=== PATIENT | male | born 1965 | race Caucasian/White ===

== ENCOUNTER 2018-12-01 21:57 | Inpatient (IN) | payer OTHER ==
[~2018-12-01] VITALS: Ht 172.7 cm; Wt 134.8 kg
[2018-12-01 22:01] VITALS: Ht 172.7 cm; Wt 134.8 kg
[2018-12-01 23:26] LABS: CALCIUM 8.4 mg/dL (8.5-10.1); CARBON DIOXIDE 29.9 mmol/L (21-32); CHLORIDE SERUM 102 mmol/L (98-107); CREATININE SERUM 1.2 mg/dL (0.7-1.3); GFR1 > 60 mL/min; GLUCOSE SERUM 191 mg/dL (74-106); POTASSIUM SERUM 3.4 mmol/L (3.5-5.1); SODIUM SERUM 138 mmol/L (136-145)
[2018-12-01 23:33] LABS: ALKALINE PHOSPHATASE 81 U/L (46-116); ALT/SGPT 40 U/L (16-63); AST/SGOT 21 U/L (15-37); BILIRUBIN TOTAL 0.6 mg/dL (0.20-1.00)
[2018-12-01 23:35] LABS: ALBUMIN 2.3 g/dL (3.4-5.0)
[2018-12-01 23:39] LABS: BASOPHIL % 0.3 % (0-2); PLATELET COUNT 245 x10^3mcL (130-400)
[2018-12-02] MEDS ORDERED: BASAGLAR K100 UNIT/1 SQ (01:17)
[2018-12-02] MEDS ORDERED: LOTENSIN40 MG PO (01:18)
[2018-12-02] MEDS ORDERED: NEU300 PO (01:18)
[2018-12-02] MEDS ORDERED: METFORMIN HYD1000 M2 PO (01:18)
[2018-12-02] MEDS ORDERED: RANITIDINE HCL150 M1 PO (01:19)
[2018-12-02] MEDS ORDERED: FUROSEMIDE20 MG PO (01:19)
[2018-12-02] MEDS ORDERED: GOOD SENSE ASPI81 M3 PO (01:19)
[2018-12-02] MEDS ORDERED: REQUIP0.5 MG PO (01:20)
[2018-12-02] MEDS ORDERED: PAROXETINE HCL20 M1 PO (01:20)
[2018-12-02] MEDS ORDERED: POTASSIUM CHLO10 MEQ PO (01:21)
[2018-12-02] MEDS ORDERED: CARVEDILOL3.125 M1 PO (01:21)
[2018-12-02] MEDS ORDERED: MELOXICAM15 M1 PO (01:21)
[2018-12-02] MEDS ORDERED: NEURONTIN600 MG PO (01:22)
[2018-12-02 02:59] LABS: CHOLESTEROL/HDL RATIO 2.5; MAGNESIUM 1.3 mg/dL (1.8-2.4); PHOSPHOROUS 2.8 mg/dL (2.5-4.9)
[2018-12-02 03:15] LABS: microscopic required? YES; urine erythrocyte 1+ (NEGATIVE)
[2018-12-02 04:04] VITALS: BP 136/77
[2018-12-02 07:01] VITALS: BP 136/77
[2018-12-02 09:03] VITALS: BP 155/91
[2018-12-02 11:00] VITALS: BP 141/91
[2018-12-02 18:08] VITALS: BP 123/79
[2018-12-02 19:56] VITALS: BP 156/105
[2018-12-03 05:00] VITALS: BP 94/57
[2018-12-03 06:30] LABS: BASOPHIL % 0.2 % (0-2); PLATELET COUNT 249 x10^3mcL (130-400); RED CELL DISTRIBUTION WIDTH 14.1 % (11.5-14.5)
[2018-12-03 07:04] LABS: CALCIUM 8.3 mg/dL (8.5-10.1); CARBON DIOXIDE 29.2 mmol/L (21-32); CREATININE SERUM 1.4 mg/dL (0.7-1.3); MAGNESIUM 1.9 mg/dL (1.8-2.4); PHOSPHOROUS 4.2 mg/dL (2.5-4.9); POTASSIUM SERUM 3.7 mmol/L (3.5-5.1)
[2018-12-03 09:28] VITALS: BP 117/74
[2018-12-03 14:05] VITALS: BP 111/67
[2018-12-03 17:20] VITALS: BP 123/87
[2018-12-03 20:22] VITALS: BP 134/76
[2018-12-04 04:44] VITALS: BP 115/80
[2018-12-04 07:04] LABS: BASOPHIL % 0.3 % (0-2); CARBON DIOXIDE 33.8 mmol/L (21-32); CREATININE SERUM 1.5 mg/dL (0.7-1.3); PLATELET COUNT 300 x10^3mcL (130-400); POTASSIUM SERUM 4.2 mmol/L (3.5-5.1); RED CELL DISTRIBUTION WIDTH 14.5 % (11.5-14.5)
[2018-12-04 09:46] VITALS: BP 132/96
[2018-12-04 14:31] VITALS: BP 136/90
[2018-12-04 18:32] VITALS: BP 150/98
[2018-12-04 20:50] VITALS: BP 151/97
[2018-12-05 05:07] VITALS: BP 127/55
[2018-12-05 07:42] LABS: CALCIUM 8.5 mg/dL (8.5-10.1); CARBON DIOXIDE 28.9 mmol/L (21-32); CHLORIDE SERUM 102 mmol/L (98-107); CREATININE SERUM 1.2 mg/dL (0.7-1.3); GFR1 > 60 mL/min; GLUCOSE SERUM 180 mg/dL (74-106); POTASSIUM SERUM 4.3 mmol/L (3.5-5.1); SODIUM SERUM 138 mmol/L (136-145)
[2018-12-05 08:09] LABS: BASOPHIL % 0.3 % (0-2); PLATELET COUNT 259 x10^3mcL (130-400); RED CELL DISTRIBUTION WIDTH 14.2 % (11.5-14.5)
[2018-12-05 09:00] VITALS: BP 130/65
[2018-12-05 09:58] VITALS: BP 130/65
[2018-12-05 12:29] VITALS: BP 123/87
[2018-12-05 16:38] VITALS: BP 101/64
[2018-12-05 20:42] VITALS: BP 122/75
[2018-12-06 05:11] VITALS: BP 124/79
[2018-12-06 06:57] LABS: BASOPHIL % 0.4 % (0-2); PLATELET COUNT 256 x10^3mcL (130-400); RED CELL DISTRIBUTION WIDTH 14.2 % (11.5-14.5)
[2018-12-06 08:06] LABS: CALCIUM 8.4 mg/dL (8.5-10.1); CHLORIDE SERUM 103 mmol/L (98-107); GFR1 > 60 mL/min; GLUCOSE SERUM 155 mg/dL (74-106); POTASSIUM SERUM 4.1 mmol/L (3.5-5.1); SODIUM SERUM 140 mmol/L (136-145)
[2018-12-06 09:22] VITALS: BP 98/69
[2018-12-06 12:46] VITALS: BP 123/84
[2018-12-06 16:50] VITALS: BP 107/78
[2018-12-06 21:24] VITALS: BP 132/74
[2018-12-07 05:25] VITALS: BP 107/61
[2018-12-07 07:05] LABS: PLATELET COUNT 287 x10^3mcL (130-400); RED CELL DISTRIBUTION WIDTH 14.1 % (11.5-14.5)
[2018-12-07 07:23] LABS: CALCIUM 8.6 mg/dL (8.5-10.1); CARBON DIOXIDE 33.2 mmol/L (21-32); CHLORIDE SERUM 103 mmol/L (98-107); CREATININE SERUM 1.2 mg/dL (0.7-1.3); GFR1 > 60 mL/min; GLUCOSE SERUM 123 mg/dL (74-106); POTASSIUM SERUM 4.4 mmol/L (3.5-5.1); SODIUM SERUM 141 mmol/L (136-145)
[2018-12-07 08:38] VITALS: BP 120/79
[2018-12-07 12:55] VITALS: BP 131/86
[2018-12-07 18:00] VITALS: BP 154/97
[2018-12-07 20:37] VITALS: BP 129/88
[2018-12-08 03:43] VITALS: BP 140/91
[2018-12-08 06:24] LABS: BASOPHIL % 1.7 % (0-2); PLATELET COUNT 316 x10^3mcL (130-400); RED CELL DISTRIBUTION WIDTH 13.8 % (11.5-14.5)
[2018-12-08 06:36] LABS: CALCIUM 8.9 mg/dL (8.5-10.1); CARBON DIOXIDE 31.7 mmol/L (21-32); CHLORIDE SERUM 100 mmol/L (98-107); CREATININE SERUM 1.1 mg/dL (0.7-1.3); GFR1 > 60 mL/min; GLUCOSE SERUM 225 mg/dL (74-106); POTASSIUM SERUM 4.6 mmol/L (3.5-5.1); SODIUM SERUM 139 mmol/L (136-145)
[2018-12-08 09:06] VITALS: BP 142/91
[2018-12-08 12:00] VITALS: BP 122/79
[2018-12-08 17:17] VITALS: BP 128/77
[2018-12-08 20:57] VITALS: BP 113/80
[2018-12-09 04:43] VITALS: BP 135/75
[2018-12-09 06:41] LABS: BASOPHIL % 0.3 % (0-2); PLATELET COUNT 354 x10^3mcL (130-400); RED CELL DISTRIBUTION WIDTH 13.6 % (11.5-14.5)
[2018-12-09 06:59] LABS: CALCIUM 9.2 mg/dL (8.5-10.1); CARBON DIOXIDE 33.8 mmol/L (21-32); CHLORIDE SERUM 99 mmol/L (98-107); CREATININE SERUM 1.2 mg/dL (0.7-1.3); GFR1 > 60 mL/min; GLUCOSE SERUM 254 mg/dL (74-106); POTASSIUM SERUM 4.6 mmol/L (3.5-5.1); SODIUM SERUM 139 mmol/L (136-145)
[2018-12-09 09:20] VITALS: BP 134/94
[2018-12-09 12:51] VITALS: BP 138/87
[2018-12-09 16:22] VITALS: BP 132/85
[2018-12-09 22:23] VITALS: BP 134/88
[2018-12-10 05:57] VITALS: BP 115/73
[2018-12-10 07:38] LABS: BASOPHIL % 0.8 % (0-2); PLATELET COUNT 341 x10^3mcL (130-400)
[2018-12-10 08:20] LABS: CALCIUM 9.3 mg/dL (8.5-10.1); CARBON DIOXIDE 30.5 mmol/L (21-32); CHLORIDE SERUM 101 mmol/L (98-107); CREATININE SERUM 1.1 mg/dL (0.7-1.3); GFR1 > 60 mL/min; GLUCOSE SERUM 186 mg/dL (74-106); POTASSIUM SERUM 4.1 mmol/L (3.5-5.1); SODIUM SERUM 139 mmol/L (136-145)
[2018-12-10 08:37] VITALS: BP 143/92
[2018-12-10] MEDS ORDERED: MEDDP PO (12:16)
[2018-12-10] MEDS ORDERED: LASIX40 MG PO (12:33)
[2018-12-10 13:44] VITALS: BP 143/92
== END 2018-12-10 18:00 | disposition home or self-care (01) | DRG 194 ==
LOC: ED 21:57 → DU 12-02 01:29 → MU 12-09 16:26
PROVIDERS: Emergency Medicine; Family Medicine; ADMIT Internal Medicine
DX: I11.0 Hypertensive heart disease with heart failure (principal); J96.01 Acute respiratory failure with hypoxia; E43 Unspecified severe protein-calorie malnutrition; N17.9 Acute kidney failure, unspecified; J45.901 Unspecified asthma with (acute) exacerbation; E11.65 Type 2 diabetes mellitus with hyperglycemia; E66.01 Morbid (severe) obesity due to excess calories; I50.23 Acute on chronic systolic (congestive) heart failure; E83.42 Hypomagnesemia; Z68.41 Body mass index [BMI] 40.0-44.9, adult; I43 Cardiomyopathy in diseases classified elsewhere; E87.6 Hypokalemia; G47.33 Obstructive sleep apnea (adult) (pediatric); E78.5 Hyperlipidemia, unspecified; Z79.4 Long term (current) use of insulin; Z79.82 Long term (current) use of aspirin; Z79.84 Long term (current) use of oral hypoglycemic drugs
CPT/HCPCS: 82962; 83880; 94150; J1644; J1815; J1940; J2405; J2920; J2930; J3475; J7040; J7620; J7626; Q0092; Q0177

== ENCOUNTER 2019-02-06 22:14 | Inpatient (IN) | payer OTHER ==
[~2019-02-06] VITALS: Ht 172.7 cm; Wt 66.4 kg
[~2019-02-06 22:14] MED LIST: BASAGLAR K100 UNIT/1 SQ; CARVEDILOL3.125 M1 PO; FUROSEMIDE20 MG PO; GOOD SENSE ASPI81 M3 PO; LASIX40 MG PO; LOTENSIN40 MG PO; MEDDP PO; MELOXICAM15 M1 PO; METFORMIN HYD1000 M2 PO; NEU300 PO; NEURONTIN600 MG PO; PAROXETINE HCL20 M1 PO; POTASSIUM CHLO10 MEQ PO; RANITIDINE HCL150 M1 PO; REQUIP0.5 MG PO
--- NOTE | 2019-02-06 22:20 | NUR ---
PT BIB AUNT FOR C/O SOB X 3 DAYS. PT STATES THAT HE HAS JUST BEEN FEELING SO SOB HE FEELS RESTLESS AND CAN NOT LAY DOWN BECAUSE HE CAN NOT BREATHE. PT HAS CRACKLES IN BL BASES OF LUNGS WELL IS LABORED AND DIAPHORETIC. PT SPEAKING IN SHORT 2 -3 WORD SENTENCES. PT DENIES ANY PAIN AT THIS TIME. PT HAS BLLE PITTING EDEMA. SING AT BEDSIDE FOR MSE. PT PUT ON 2L NC TO SEE IF THAT INCREASES HIS O2 SATURATION HWOERIMMA ISAACS SING WANTS STAT ABG. AUNT AT BEDSIDE.
--- NOTE | 2019-02-06 22:41 | NUR ---
RT AT BEDSIDE FOR ABG
[2019-02-06 23:07] LABS: BASOPHIL % 0.5 % (0-2); PLATELET COUNT 234 x10^3mcL (130-400); RED CELL DISTRIBUTION WIDTH 14.1 % (11.5-14.5)
[2019-02-06 23:14] LABS: BILIRUBIN TOTAL 0.32 mg/dL (0.20-1.00); CALCIUM 8.1 mg/dL (8.5-10.1); CARBON DIOXIDE 29.5 mmol/L (21-32); CREATININE SERUM 1.7 mg/dL (0.7-1.3); POTASSIUM SERUM 4.9 mmol/L (3.5-5.1)
[2019-02-06 23:24] LABS: ALBUMIN 2.5 g/dL (3.4-5.0); TOTAL PROTEIN, SERUM 5.8 g/dL (6.4-8.2)
--- NOTE | 2019-02-06 23:41 | NUR ---
PT STATES HE DOES NOT FEEL ANY RELIEF AND FEELS LIKE HE IS GETTING TIRED AND HAS A H/A PER MD SING WE WILL PUT PT ON BIPAP. PT MADE AWARE PT ALSO MADE AWARE HE WILL BE STAYING IN HOSPITAL RT CALLED TO PLACE PT ON BIPAP THEY STATE THEY WILL BE RIGHT DOWN
[2019-02-07] VITALS (7 sets, daily range): BP systolic 106–160; BP diastolic 49–989; Ht 172.7 cm; Wt 66.4 kg
--- NOTE | 2019-02-07 00:07 | NUR ---
RT AT BEDSIDE FOR BIPAP PLACEMENT
--- NOTE | 2019-02-07 00:33 | NUR ---
SPOKE WITH ADMITTING FOR CLINICAL INFORMATION TO ADMIT PT
[2019-02-07] MEDS ORDERED: ATRNS6 (00:36)
[2019-02-07] MEDS ORDERED: LACOO OU (00:37)
[2019-02-07] MEDS ORDERED: ADMELOG100 UNIT/1 SQ (00:37)
--- NOTE | 2019-02-07 00:40 | NUR ---
ASSESSMENT COMPLETED BY JUSTIN LEWIS RN
--- NOTE | 2019-02-07 00:50 | NUR ---
REPORT CALLED TO MIQUEL GILBERT TO RESUME CARE OF PT
--- NOTE | 2019-02-07 01:00 | NUR ---
BED SIDE HANDS OFF RECEIVED FROM RESOURCE RN JUAN- PATIENT NOTED TO HAVE SOB ON EXERTION AND ACTIVITY. WAS ON 4LNC SAT 98%, WILL BE PLACED ON BIPAP SOON AT SETTING 12/6, 16, FIO2 40%. PATIENT ABLE TO ANSWER QUESTIONS. PATIENT ACQUIANTED TO BEDSIDE EQUIPMENTS AND UNIT POLICIES. SAFETY PRECAUTIONS INITIATED. WILL CONTINUE TO MONITOR.
--- NOTE | 2019-02-07 01:00 | NUR ---
[facility], CAME IN DUE TO BLE SWELLING AND SOB. AAOX4. C/O MILD HEADACHE. DENIES DIZZINESS. ABLE TO FOLLOW COMMANDS. NO SOB NOTED, LUNG SOUNDS CTA. O2 SAT=94% ON 4LPM/NC. DENIES CHEST PAIN/PRESSURE. SR ON THE MONITOR. DENIES ABDOMINAL DISCOMFORT. BOWEL SOUNDS ACTIVE. VOIDS. W/ +3 EDEMA ON THE RLE AND +1 EDEMA ON LLE. WEAK PEDAL PULSES. IV SITE PATENT AND INTACT. SIDE RAILS UPX2. CALL LIGHT ON REACH. PRIMARY NURSE MIQUEL AT BEDSIDE FOR CONTINUITY OF CARE
[2019-02-07 02:01] LABS: UA SPECIFIC GRAVITY 1.015 (1.005-1.035); microscopic required? YES; urine erythrocyte TRACE (NEGATIVE)
[2019-02-07 02:19] LABS: AMPHETAMINE QUAL UR NONE DETECTED (See below)
--- NOTE | 2019-02-07 03:05 | NUR ---
patient had short run of v-tach, 11 pvc's in a row 0.4sec. patient checked was sleepingg, easily awaken, denied chest pains or discomforts, checked bp was 107/53,map=67, rr=20bpm, on bipap sat 96%/ will notify md.
--- NOTE | 2019-02-07 03:35 | NUR ---
dr hester responded back, able to see correctional manager strip.
--- NOTE | 2019-02-07 06:13 | NUR ---
PATIENT SINCE ARRIVAL TO THE FLOOR NO NOTED RESP. DISTRESS, TOLERATING BIPAP AT SAME SETTING 12/6, 16 FIO2 40%, SAT BETWEEEN 93-96%. AMBULATORY WITH STEADY GAIT MILD SOB ON EXERTION.SAFETY PRECAUTIONS MAINTAINED.WILL ENDORSE CONTINUITY OF CARE TO INCOMING NURSE.
[2019-02-07 06:27] LABS: BASOPHIL % 0.3 % (0-2); PLATELET COUNT 230 x10^3mcL (130-400); RED CELL DISTRIBUTION WIDTH 14.4 % (11.5-14.5)
[2019-02-07 06:55] LABS: CALCIUM 8.2 mg/dL (8.5-10.1); CARBON DIOXIDE 35.9 mmol/L (21-32); CREATININE SERUM 1.6 mg/dL (0.7-1.3); PHOSPHOROUS 4.6 mg/dL (2.5-4.9); POTASSIUM SERUM 5.1 mmol/L (3.5-5.1)
--- NOTE | 2019-02-07 07:36 | NUR ---
BEDSIDE HANDS OFF AND INTRODUCTION PERFORMED WITH INCOMING NURSE ELADIO-RN.
--- NOTE | 2019-02-07 07:51 | NUR ---
RECEIVED PATIENT FROM OFELIA LAFLEUR. PATIENT SEATED AT BEDSIDE USING BIPAP. NO COMPLAINTS AT THIS TIME. SPOKE WITH PATIENT ABOUT TODAYS PLAN OF CARE, PATIENT AGREES. STATES HE NEEDS HIS COFFEE FOR THIS AM. WILL CONTINUE TO MONITOR AND ADMINISTER MEDICATIONS THIS AM. CALL LIGHT IN REACH.
--- NOTE | 2019-02-07 12:17 | NUR ---
PT HOLDING BIPAP MASK AT TIME OF ENTERING THE ROOM. PT TAKES ON AND OFF BIPAP HIS SELF. PT NOTIFIED TO USE NASAL CANNULA WHICH WAS REPLACED AT THIS TIME. PT STATED THAT IT FELL ON THE FLOOR. NEW NASAL CANNULA IS AT BEDSIDE RUNNING AT 4L/M. WILL CONTINUE TO MONITOR.
--- NOTE | 2019-02-07 12:58 | NUR ---
PATIENT BS ELEVATED TO 535, 537 ON SECOND CHECK. PAGED DR CASTILLO SAYED, 21 U OF REGULAR INSULIN GIVEN. IVP SOLUMEDROL 40 MG HELD AT THIS TIME UNTIL RESPONSE FROM DR. PATIENT DENIES FATIGUE, NO S/S OF ALOC OR DIAPHORESIS. PATIENT SEATED AT BEDSIDE, EATING LUNCH TRAY. CALL LIGHT IN REACH.
--- NOTE | 2019-02-07 13:07 | NUR ---
SPOKE WITH DR CASTILLO SAYED ABOUT PATIENT BS. STATES TO RECHECK TO BLOOD SUGAR IN AN HOUR, AND TO HOLD IV SOLUMEDROL, AND TO LET HIM KNOW. WILL RECHECK IN ONE HOUR.
--- NOTE | 2019-02-07 14:47 | NUR ---
PATIENT BLOOD SUGAR RECHECKED AND STILL ELEVATED TO "HI". NOTIFIED CHARGE NURSE MEÑO, AND DR CASTILLO SAYED. NEW ORDERS PLACED FOR STAT ABG, UA, AND SERUM GLUCOSE. WILL CONTINUE TO MONITOR, UA COLLECTED, SERUM GLUCOSE DRAWN, AND ABG DRAW IN PROGRESS. PATIENT SEATED AT BEDSIDE, DENIES DIZZINESS, SKIN IS WARM AND DRY.
[2019-02-07 14:51] LABS: UA SPECIFIC GRAVITY 1.015 (1.005-1.035); microscopic required? YES; urine erythrocyte 1+ (NEGATIVE)
[2019-02-07 15:09] LABS: CALCIUM 8.4 mg/dL (8.5-10.1); CARBON DIOXIDE 32.9 mmol/L (21-32); CREATININE SERUM 1.6 mg/dL (0.7-1.3)
[2019-02-07 15:19] LABS: POTASSIUM SERUM 6.2 mmol/L (3.5-5.1)
--- NOTE | 2019-02-07 16:35 | NUR ---
PT ARRIVED TO UNIT @ 1625 VIA ON 4L O2 AND BULK FILLER VIA BED ACCOMPANIED BY KAROLINA GILBERT AND MYSELF. ICU BED 3. VS = TEMP: 97.6, BP: 144/85 (100), HR: 87, RR: 18, O2: 99%. AAOX4. ABLE TO FOLLOW COMMANDS. PUPILS 4MM IN SIZE AND BRISK B/E. NO FACIAL DROOP NOTED. SPEECH IS CLEAR AND APPROPRIATE. DENIES HEADACHE. EENT FREE OF DISCHARGE. TRACHEA MIDLINE. NO JVD PRESENT. PT IS OBESE. PT PUT BACK ON BIPAP BY LAUREN GILBERT, SETTINGS OF: 06/09, RR: 16, FIO2: 40%. BREATHING EVEN AND UNLBAORED. SYMMETRICAL CHEST WALL EXPANSION NOTED. DIMINISHED LUNG SOUNDS AUSCULTATED. NO S/S OF RESP DISTRESS NOTED. DENIES SOB. NSR ON BULK FILLER. MOD PALPABLE PULSES X4. CAP REFILL <3 SEC. +3 EDEMA NOTED TO BLE. SKIN IS WARM/DRY TO TOUCH, MORRISON/BROWN IN COLOR AND CONSISTENT WITH ETHNICITY. PIV TO R FA INTACT, PORT PATENT, DRESSING CDI. ABD IS ROUNDED AND NONTENDER. ACTIVE BOWEL SOUNDS X4. NO BM AT THIS TIME. DENIES N/V. PT VOIDS FREELY VIA URINAL, VOIDED 350CC OF YELLOW URINE AT BEDSIDE. HAS PIERCING TO R NIPPLE NOTED, OTHERWISE SKIN INTACT. WILL RESUME CARE OF PT.
--- NOTE | 2019-02-07 16:56 | NUR ---
INSULIN GTT INITIATED AT THIS TIME @ 0.1 UNITS/KG/HR. NS INITIATED @ 50 ML/HR PER DR'S ORDERS DUE TO PT'S HX OF CHF.
[2019-02-07 16:57] LABS: CALCIUM 8.4 mg/dL (8.5-10.1); CARBON DIOXIDE 33.4 mmol/L (21-32); CREATININE SERUM 1.5 mg/dL (0.7-1.3); PHOSPHOROUS 4.3 mg/dL (2.5-4.9); POTASSIUM SERUM 5.5 mmol/L (3.5-5.1)
--- NOTE | 2019-02-07 19:35 | NUR ---
REC'D REPORT FROM KARIE GILBERT TO ASSUME CARE. PT IS A/O X4. SPEECH CLEAR AND APPRORPIATE. ABLE TO MAKE NEEDS KNOWN PERRLA NOTED. EENT FREE OF DISCHARGE. RESPS E/U. CHEST RISE EQUAL AND SYMMETRICAL. PT ON BIPAP RATE 16, IPAP 12, FIO2 40%. LUNG SOUNDS DIMINISHED NITHIN. PASSENGER VESSEL CHEF IN PLACE. BP 106/49 MAP 69, HR 87. DENIES ANY CP, SYNCOPE, OR DIZZINESS. CHEST WALL STABLE. PULSES PALPABLE X4. CAP REFILL < 3 SECS. BLE PITTING 2+ PITTING EDEMA, BUE TRACE EDEMA. RFA IV INTACT AND PATENT, NS INFUSING @ 50ML/HR. INSULIN GTT INFUSING @ 0.1 UNITS/KG/HR. PT KEPT NPO PER MD ORDER. ABD OBESE AND SOFT. BOWEL SOUNDS ACTIVE. DENIES ANY N/V/D. VOIDS FREELY WITH URINAL. DENIES ANY URINARY SYMPTOMS. SKIN INTACT. WARM DRY TO TOUCH. PT CALM AND COOPERATIVE. NO VISITORS AT THIS TIME. ABLE TO REPOSITION SELF INDEPENDENTLY. ALL NEEDS MET AT THIS TIME. CALL LIGHT WITHIN REACH. WILL CONTINUE TO MONITOR.
--- NOTE | 2019-02-07 20:15 | NUR ---
BS 168, INSULIN GTT DECREASED TO 0.05 UNITS/KG/HR. DR CUTLER MADE AWARE TO CHANGE IVF AND DIET.
[2019-02-07 20:45] LABS: CALCIUM 8.9 mg/dL (8.5-10.1); CARBON DIOXIDE 31.3 mmol/L (21-32); CREATININE SERUM 1.4 mg/dL (0.7-1.3); PHOSPHOROUS 4.4 mg/dL (2.5-4.9); POTASSIUM SERUM 4.7 mmol/L (3.5-5.1)
[2019-02-07 20:53] LABS: MAGNESIUM 2.1 mg/dL (1.8-2.4)
--- NOTE | 2019-02-07 21:08 | NUR ---
IVF CHANGED TO D5 1/2 NS @ 50ML/HR. PT STS FEELING HUNGRY. BIPAP TAKEN OFF, PT PLACED ON O2 4 LPM VIA NC O2 SAT 95%. PT PROVIDED SANDWICH AND PUDDING. TOLERATED WELL.
--- NOTE | 2019-02-07 22:20 | NUR ---
PTS BS 231, IVF TITRATED TO 40ML/HR.
--- NOTE | 2019-02-07 23:04 | NUR ---
PT SEEN SITTING UP IN BED AWAKE TALKING ON PHONE WITH HIS MOM. NO SOB NOTED,RESPS E/U ON O2 4LPM VIA NC.
--- NOTE | 2019-02-07 23:04 | NUR ---
PT ASSISTED TO BSC, PT HAD SMALL AMT OF SOFT STOOL. PT ASSISTED BACK TO BED SAFELY.
--- NOTE | 2019-02-08 00:15 | NUR ---
PT PLACED BACK ON BIPAP AT THIS TIME. SOUMYA RT MADE AWARE.
[2019-02-08 00:35] LABS: CALCIUM 8.8 mg/dL (8.5-10.1); CARBON DIOXIDE 31.7 mmol/L (21-32); CHLORIDE SERUM 99 mmol/L (98-107); CREATININE SERUM 1.2 mg/dL (0.7-1.3); GFR1 > 60 mL/min; GLUCOSE SERUM 207 mg/dL (74-106); MAGNESIUM 1.8 mg/dL (1.8-2.4); PHOSPHOROUS 4.2 mg/dL (2.5-4.9); POTASSIUM SERUM 4.6 mmol/L (3.5-5.1); SODIUM SERUM 136 mmol/L (136-145)
--- NOTE | 2019-02-08 01:09 | NUR ---
ANION GAP CLOSED X2. DR CUTLER MADE AWARE, AWAITING FOR FURTHER ORDERS.
--- NOTE | 2019-02-08 02:06 | NUR ---
PTS URINAL EMPTIED 500ML CLEAR YELLOW URINE.
[2019-02-08 03:17] VITALS: BP 109/52
--- NOTE | 2019-02-08 03:30 | NUR ---
INSULIN GTT TURNED OFF AT THIS TIME. LONG ACTING INSULIN GIVEN PER MD ORDER. IVF NS CHANGED TO 50ML/HR.
--- NOTE | 2019-02-08 03:32 | NUR ---
DR CUTLER MADE AWARE LONG ACTING INSULIN ONE TIME DOSE NEEDED AT THIS TIME TO TURN OFF INSULIN GTT PER DKA PROTOCOL. AWAITING FURTHER ORDERS.
[2019-02-08 04:57] LABS: BASOPHIL % 0.3 % (0-2); PLATELET COUNT 241 x10^3mcL (130-400)
[2019-02-08 04:59] LABS: CALCIUM 8.6 mg/dL (8.5-10.1); CARBON DIOXIDE 33.7 mmol/L (21-32); CHLORIDE SERUM 102 mmol/L (98-107); CREATININE SERUM 1.2 mg/dL (0.7-1.3); GFR1 > 60 mL/min; GLUCOSE SERUM 190 mg/dL (74-106); MAGNESIUM 1.8 mg/dL (1.8-2.4); PHOSPHOROUS 4.2 mg/dL (2.5-4.9); POTASSIUM SERUM 4.1 mmol/L (3.5-5.1); SODIUM SERUM 140 mmol/L (136-145)
--- NOTE | 2019-02-08 06:17 | NUR ---
DR BRYSON AT BEDSIDE, UPDATED ON STATUS, STS PT IS READY TO BE TRANSFERRED TO [facility].
[2019-02-08 07:30] VITALS: BP 120/67
--- NOTE | 2019-02-08 07:30 | NUR ---
PATIENT ORIENTED TO PERSON, PLACE AND TIME. PATIENT COMMUNICATES WITH CLEAR SPEECH AND MAKES NEEDS KNOWN. PERRLA BOTH EYES. TELE # 3 READS NORMAL SINUS RHYTHMS. IV SITE TO RFA HEPLOCK AT THIS TIME. SOME SWELLING NOTED AT THE SITE; ICE PACK APPLIED. WILL REMOVE THE HEPLOCK SOON PATIENT IS ON BIPAP AT THIS TIME 12/6, RATE 16, FIO2 40%. CALL LIGHT WITHIN REACH. SIDE RAILS UP X3.
--- NOTE | 2019-02-08 07:35 | NUR ---
BIPAP WAS SWITCHED TO NASAL CANNULA 4L/MIN SO THAT PATIENT WILL HAVE BREAKFAST. O2 SAT >94% AT THIS TIME.
--- NOTE | 2019-02-08 08:28 | NUR ---
DR. CRAWFORD IS AT BEDSIDE EXAMING THE PATIENT.
--- NOTE | 2019-02-08 08:30 | NUR ---
NEW IV SITE INSERTED TO RIGHT HAND WITH #22G. THE OLD IV SITE AT RFA REMOVED. MULTIPLE BLISTERS NOTED BENEATH THE TAPE AT THE SITE. THE TAPE REMOVED. THE PICTURE OF THE SKIN AREA TAKEN.
--- NOTE | 2019-02-08 08:35 | NUR ---
THE SKIN TEAR/BLISTERS AT RFA WAS CLEANSED WITH SKIN PREP; PATTED DRY BEFORE APPLYING VERSATEL.
--- NOTE | 2019-02-08 09:23 | NUR ---
PLACED PT ON HI FLOW THERAPY AT THIS TIME 10L 35%. FIO2 ABOVE 92%. KNIFE GRINDER NOTIFIED.
--- NOTE | 2019-02-08 09:57 | NUR ---
DR. RAIN AND THE TEAM ARE AT BEDSIDE SEEING THE PATIENT.
[2019-02-08 11:00] VITALS: BP 143/89
[2019-02-08 12:38] LABS: rbc morphology (normal/abnorm) NORMAL (NORMAL)
--- NOTE | 2019-02-08 14:30 | NUR ---
REPORT GIVEN TO JUAN ANTONIO THE NURSE FROM [facility] UNIT. CONCERNS ADDRESSED. PATIENT IS TRANSFERRED TO ROOM 255B [facility] UNIT IN STABLE CONDITION VIA WHEELCHAIR; PATIENT TRANSFERRED HIMSELF FROM BED TO WHEELCHAIR AND FROM WHEELCHAIR TO BED WITHOUT ASSISTANCE. ALL BELONGINGS SENT TO THE ROOM WITH THE PATIENT.
[2019-02-08 14:45] VITALS: BP 156/94
--- NOTE | 2019-02-08 14:53 | NUR ---
RECEIVED PATIENT FROM ICU NURSE. SETTLED IN ROOM, ORIENTED TO SURROUNDINGS. PATIENT IS ON TELE MONITOR # 14. DX OF RESPIRATORY FAILURE AND CHF. PATIENT IS AWAKE, ALERT AND ORIENTED X 4. MONITOR SHOWING SINUS RHYHTM; RATE 90'S. O2 SAT 97% ON BIPAP WITH FIO2 OF 35 %. PATIENT AMBULATED TO BATHROOM AND BACK TO BED. RT AT BEDSIDE. CALL LIGHT WITHIN REACH.
[2019-02-08 16:36] VITALS: BP 150/91
--- NOTE | 2019-02-08 17:19 | NUR ---
PATIENT REMAINS ON BIPAP. RESTING QUIETLY. BLOOD GLUCOSE 296. GIVEN REGULAR INSULIN 9 UNITS PER SLIDING SCALE.
--- NOTE | 2019-02-08 17:55 | NUR ---
PATIENT PLACED ON NC AT 4L/MIN , SO THAT HE CAN EAT DINNER. SITTING ON SIDE OF BED.
--- NOTE | 2019-02-08 18:26 | NUR ---
O2 SAT 96% ON 4L VIA NC. RR 25-30. SOB ON EXERTION. WILL ENDORSE CARE TO NIGHT NURSE.
--- NOTE | 2019-02-08 19:49 | NUR ---
SHIFT REASSESSMENT DONE.PATIENT ALERT AND ORIENTED.O2 AT 4 LITERS AT THIS TIME,PATIENT OBESE,BIPAP AT [facility],ALSO HAS HI FLOW SET UP,BUT REPORT SAYS HE DOES NOT LIKE IT,A TRANSFER FROM ICU TODAY.GEN WEAKNESS BUT AMBULATORY.FALL PRECAUTION.R HAND IV SITE 22 GUAGE INTACT.HAS OLD IV SITE RFA,BLISTERS,COVERED.BLE EDEMA NOTED.HAS HEPARIN SQ Q 8 HOURS.VOIDING,FLUID RESTRICTION 1200 CC/ 24 HOURS.CALL LIGHT IN REACH.
--- NOTE | 2019-02-08 21:00 | NUR ---
ALL PM MEDS GIVEN WITH NO INCIDENT.REMINDED 1200 CC FLUID RESTRICTION.
[2019-02-08 21:15] VITALS: BP 161/90
--- NOTE | 2019-02-08 22:57 | NUR ---
BIPAP ON AT THIS TIME,RT GALILEO,SET IT UP.
--- NOTE | 2019-02-09 03:49 | NUR ---
PATIENT SITTING UP AT THIS TIME,BIPAP OFF,JUST WANT SOME ICE CHIPS,SAYS HE WILL PUT BIPAP AFTER.
--- NOTE | 2019-02-09 05:10 | NUR ---
I AND O MEASURED.URINAL AT BEDSIDE.HEPLOCK INTACT.
[2019-02-09 05:31] VITALS: BP 134/82
--- NOTE | 2019-02-09 06:24 | NUR ---
OFF BIPAP AT THIS TIME,TOLERATING,AMBULATING FROM BED TO DOORWAY.AM LAB WORKS DONE.NO INCIDENT.AM MEDS GIVEN.BLOOD SUGAR 145 THIS AM.WILL ENDORSE TO NEXT SHIFT.CALL LIGHT IN REACH.
[2019-02-09 06:29] LABS: BASOPHIL % 0.4 % (0-2); PLATELET COUNT 260 x10^3mcL (130-400); RED CELL DISTRIBUTION WIDTH 14.1 % (11.5-14.5)
[2019-02-09 06:51] LABS: CALCIUM 8.8 mg/dL (8.5-10.1); CARBON DIOXIDE 34.3 mmol/L (21-32); CHLORIDE SERUM 101 mmol/L (98-107); GFR1 > 60 mL/min; GLUCOSE SERUM 153 mg/dL (74-106); MAGNESIUM 1.7 mg/dL (1.8-2.4); PHOSPHOROUS 3.9 mg/dL (2.5-4.9); POTASSIUM SERUM 3.8 mmol/L (3.5-5.1); SODIUM SERUM 140 mmol/L (136-145)
--- NOTE | 2019-02-09 07:18 | NUR ---
RECEIVED PATIENT FROM NIGHT NURSE. AWAKE, ALERT AND ORIENTED. SITTING ON SIDE OF BED. ON BIPAP AT 35% FIO2.
[2019-02-09 08:16] VITALS: BP 144/83
--- NOTE | 2019-02-09 08:25 | NUR ---
PATIENT SWITCHED TO NC AT 4 L SO HE CAN EAT BREAKFAST. RT AT BEDSIDE. O2 SAT 98%.
--- NOTE | 2019-02-09 12:10 | NUR ---
RT IS WEANING PATIENT OFF SUPPLIMENTAL OXYGEN. HAS BEEN ON 4L NC, NOW ON 2L. WAS SATURATING 91% ON ROOM AIR.
[2019-02-09 12:23] VITALS: BP 156/96
--- NOTE | 2019-02-09 14:07 | NUR ---
Initial Nutrition Assessment: 255T/B JACQUE MURPHY IA HR Dx: Respiratory failure, CHF PMHx: DM, HTN, CHF, asthma, sleep apnea, depression PSHx: None Labs: BG 153H, BUN 24H, MG 1.7L, A1C 11.7H Meds: Colace, D 50%, humulin, Lasix, Zofran, heparin Diet: CCHO PO Intake: (02/08) 100% breakfast, lunch, (02/07) 100% breakfast, lunch Ht: 172.72 cm (68") Wt: 66.4 kg (146#) BMI: 22.3 kg/m2 Bed scale: 67 kg IBW: 154# (70 kg) %IBW: 95 UBW: unable to access Age: 54/M Food Allergies: Iodine Skin: RFA old IV site blisters Zak: 18 Edema: BLE GI: Last BM: 02/08 Per H&P, Pt is a 54 year old male with PMH of DM, HTN, CHF, asthma, sleep apnea, depression, came in to the hospital with chief complaint of shortness of breath since 7 days[address] RDN Visit (02/09): Patient was deep asleep and I was unable to wake him up. Per RN Lori, patient has good PO and does not have any N/V/D/C at this time. RN mentioned that patient is on 1200 ml fluid restriction; however that has not been mentioned under the diet order by the provider. Problem with: N/V/D/C: no (per RN) Problems with: Chewing/Swallowing: no (per RN) Current appetite: good (per RN) Recent wt change: unable to access as pt. sleeping %wt change: n/a Vitamin/Supplement use: unable to access Special diet at home: unable to access Physical activity: unable to access Nutrition education given: not appropriate at this time as pt. was sleeping Food-drug interactions: Colace- high fiber w/5794-0039 ml fluids Education given: no Estimated Nutritional Needs Based on current body weight 66.4 kg Energy: 7636-9935 kcal/d (25-30 kcal/kg) Protein: 66-79 g/d (1.0-1.2 g/kg) - preserve LBM Fluid: per doctor, 1200 ML per OFELIA Sandoval Nutrition Diagnosis 1. Impaired nutrient utilization related to endocrine dysfunction as evidenced by A1C:11.7 Intervention 1. Recommend CCHO (Cardiac) diet. 2. Recommend adding fluid restriction of 1200 ml to the current diet order. Discussed recommendations with Dr. Matthew Sayed, he said that patient is being D/C today. Monitor/Evaluate Goal: PO intake at least 75% of estimated needs Monitor: PO intake, Labs, GI function F/U in 3-5 days as moderate risk 02/12-
--- NOTE | 2019-02-09 14:10 | NUR ---
GIVEN MG OXIDE 400 MG PO PER EMAR, FOR MG LEVEL OF 1.7
[2019-02-09] MEDS ORDERED: LASIX20 MG PO (14:40)
[2019-02-09] MEDS ORDERED: LANTUS SOLOS100 U/M1 SQ (14:41)
--- NOTE | 2019-02-09 15:11 | NUR ---
PATIENT IS NOW ON ROOM AIR. O2 SAT 93-95%. MONITORING O2 SAT. RECEIVED ORDERS TO DISCHARGE HOME AFTER 1700.
[2019-02-09 15:12] VITALS: BP 158/89
--- NOTE | 2019-02-09 15:33 | NUR ---
PATIENT AMBULATED IN HALLWAY. TOLERATED WELL. RECHECKED O2 SAT POST AMBULATION IT WAS AT 96% ON ROOM AIR.
--- NOTE | 2019-02-09 18:09 | NUR ---
TAKEN OFF CARDIAC MONITORING. IV CATHETER REMOVED INTACT. DRESSED AND PREPARED FOR DISCHARGE.
--- NOTE | 2019-02-09 18:23 | NUR ---
PRINTED DISCHARGE INSTRUCTIONS GIVEN AND EXPLAINED TO PATIENT. PRESCRIPTION PROVIDED. AWAITING RIDE HOME.
== END 2019-02-09 18:57 | disposition home or self-care (01) | DRG 194 ==
LOC: ED 22:14 → IC 02-07 00:18 → DU 02-07 00:18 → IC 02-07 16:26 → MU 02-08 14:47 → DU 02-08 21:30
PROVIDERS: Emergency Medicine; Internal Medicine; ADMIT Internal Medicine
DX: I11.0 Hypertensive heart disease with heart failure (principal); J96.21 Acute and chronic respiratory failure with hypoxia; N17.0 Acute kidney failure with tubular necrosis; E43 Unspecified severe protein-calorie malnutrition; J96.22 Acute and chronic respiratory failure with hypercapnia; E11.65 Type 2 diabetes mellitus with hyperglycemia; Z68.42 Body mass index [BMI] 45.0-49.9, adult; I50.23 Acute on chronic systolic (congestive) heart failure; J45.909 Unspecified asthma, uncomplicated; G47.30 Sleep apnea, unspecified; F32.9 Major depressive disorder, single episode, unspecified; Z79.84 Long term (current) use of oral hypoglycemic drugs; Z79.4 Long term (current) use of insulin
CPT/HCPCS: 36600; 82962; 83880; 85378; G0378; J1644; J1815; J1940; J2920; J7030; J7620

== ENCOUNTER 2019-02-17 21:20 | Inpatient (IN) | payer OTHER ==
[~2019-02-17] VITALS: Ht 172.7 cm; Wt 139.3 kg
[~2019-02-17 21:20] MED LIST changes: +ADMELOG100 UNIT/1 SQ; +ATRNS6; +LACOO OU; +LANTUS SOLOS100 U/M1 SQ; +LASIX20 MG PO
[2019-02-17 22:36] LABS: BASOPHIL % 1.1 % (0-2); PLATELET COUNT 302 x10^3mcL (130-400)
[2019-02-17 22:38] LABS: RED CELL DISTRIBUTION WIDTH 14.7 % (11.5-14.5)
--- NOTE | 2019-02-17 22:40 | NUR ---
MEDICATED PER MD ORDERS
--- NOTE | 2019-02-17 23:00 | NUR ---
PATIENT BACK FROM CT- IN ROOM. REQUESTED PATIENT TO PROVIDE URINE SAMPLE. PATIENT AMBULATED TO BATHROOM UNASSISTED. GAIT STEADY.
--- NOTE | 2019-02-17 23:03 | NUR ---
ADVISED DR JANE THAT PATIENT CAN'T REMEMBER THE LAST TIME HE WAS ABLE TO URINATE. WILL CONTINUE TO MONITOR.
--- NOTE | 2019-02-17 23:17 | NUR ---
PATIENT LYING ON GURNEY- BREATHING E/U- NO OTHER SS OF DISTRESS NOTED. WILL CONTINUE TO MONITOR.
[2019-02-17 23:52] LABS: CALCIUM 8.5 mg/dL (8.5-10.1); CARBON DIOXIDE 22.8 mmol/L (21-32); CREATININE SERUM 1.7 mg/dL (0.7-1.3); POTASSIUM SERUM 5.2 mmol/L (3.5-5.1)
[2019-02-17 23:57] LABS: ALBUMIN 2.5 g/dL (3.4-5.0); BILIRUBIN TOTAL 0.4 mg/dL (0.20-1.00); TOTAL PROTEIN, SERUM 6.5 g/dL (6.4-8.2)
--- NOTE | 2019-02-18 00:10 | NUR ---
DR JANE REMOVED 02 IN PREPARATION FOR ABG TESTING.
--- NOTE | 2019-02-18 00:37 | NUR ---
PT REQUESTING ICE CHIPS, PER DARIO GONSALEZ TO GIVE PT ICE CHIPS. PT SITTING UP ON SIDE OF [facility]. SPOUSE AT BEDSIDE. RT AT BEDSIDE FOR BREATHING TREATMENT.
[2019-02-18] MEDS ORDERED: ATIVAN1 MG PO (00:59)
--- NOTE | 2019-02-18 01:45 | NUR ---
PATIENT SITTING UP ON GURNEY- BREATHING E/U, NAD NOTED. WILL CONTINUE TO MONITOR.
--- NOTE | 2019-02-18 01:50 | NUR ---
REPORT GIVEN TO OFELIA ORELLANA FOR CONTINUED CARE OF PATIENT.
--- NOTE | 2019-02-18 02:10 | NUR ---
RECIVED PATIENT FROM ED ACCOMPANIED BY NURSE. PATIENT ABLE TO AMBULATE FROM GURNEY TO BED. PATIENT A/O X4. FOLLOWS COMMANDS. ON 4L NC, SATTING 96%. BREATHS REGULAR AND EVEN, NO DISTRESS NOTED. BREATH SOUNDS DIMINISHED IN BILATERAL BASES. ON TELE 14, NSR 89. DENIES CHEST PAIN. IV TO RAC SALINE LOCKED AND PATENT. SMALL SCAB NOTED ON RIGHT FOREARM, PATIENT STATES SCAB IS FROM ALLERGIC REACTION TO TAPE FROM HIS LAST HOSPITAL STAY. CLOSED WOUND, NO EXUDATE. EXCEPTIONAL STUDENT EDUCATION AIDE, PICTURE IN CHART. ABDOMEN IS OBESE, FIRM. BS ACTIVE. REPORTS DIARRHEA X2 DAYS, LAST BM 02/17. PULSES MODERATE. RLE +3 PITTING EDEMA. LLE +1 PITTING EDEMA. REPORTS WEIGHT GAIN OF 31 POUNDS OVER LAST MONTH. NON-SLIP SOCKS ON. SCDS ON. BED LOCKED AND IN LOWEST POSIITON. CALL LIGHT AND BEDSDIE TABLE WITHIN REACH.
--- NOTE | 2019-02-18 02:35 | NUR ---
RT AT BEDSIDE TO INITIATE BIPAP.
[2019-02-18 02:37] LABS: microscopic required? YES; urine erythrocyte TRACE (NEGATIVE)
--- NOTE | 2019-02-18 02:54 | NUR ---
RECIVED PATIENT FROM ED ACCOMPANIED BY NURSE. PATIENT ABLE TO AMBULATE FROM GURNEY TO BED. PATIENT A/O X4. FOLLOWS COMMANDS. ON 4L NC, SATTING 96%. BREATHS REGULAR AND EVEN, NO DISTRESS NOTED. BREATH SOUNDS DIMINISHED IN BILATERAL BASES. ON TELE 14, NSR 89. DENIES CHEST PAIN. IV TO RAC SALINE LOCKED AND PATENT. SMALL SCAB NOTED ON RIGHT FOREARM, PATIENT STATES SCAB IS FROM ALLERGIC REACTION TO TAPE FROM HIS LAST HOSPITAL STAY. CLOSED WOUND, NO EXUDATE. CLOCK REPAIRER, PICTURE IN CHART. ABDOMEN IS OBESE, FIRM. BS ACTIVE. REPORTS DIARRHEA X2 DAYS, LAST BM 02/17. PULSES MODERATE. RLE +3 PITTING EDEMA. LLE +1 PITTING EDEMA. REPORTS WEIGHT GAIN OF 31 POUNDS OVER LAST MONTH. NON-SLIP SOCKS ON. SCDS ON. BED LOCKED AND IN LOWEST POSIITON. CALL LIGHT AND BEDSDIE TABLE WITHIN REACH.
[2019-02-18 03:02] VITALS: BP 125/84
[2019-02-18 04:11] LABS: AMPHETAMINE QUAL UR NONE DETECTED (See below)
[2019-02-18 05:29] VITALS: BP 124/82
--- NOTE | 2019-02-18 06:01 | NUR ---
PATIENT IS AWAKE, TOLERATING BIPAP WELL. NO DISTRESS NOTED. DENIES PAIN. IV TO RAC IS SALINE LOCKED AND PATENT. BED LOCKED AND IN LOWEST POSIITON. CALL LIGHT AND BEDSIDE TABLE WITHIN REACH. WILL ENDORSE CARE TO DAYSHIFT NURSE.
[2019-02-18 07:04] LABS: BASOPHIL % 0.7 % (0-2); PLATELET COUNT 305 x10^3mcL (130-400); RED CELL DISTRIBUTION WIDTH 14.5 % (11.5-14.5)
--- NOTE | 2019-02-18 07:21 | NUR ---
RECEIVED PT FROM KERLINE GILBERT, PT IN NO ACUTE DISTRESS
[2019-02-18 07:28] LABS: CALCIUM 8.5 mg/dL (8.5-10.1); CARBON DIOXIDE 23.5 mmol/L (21-32); CREATININE SERUM 1.8 mg/dL (0.7-1.3); PHOSPHOROUS 4.5 mg/dL (2.5-4.9)
--- NOTE | 2019-02-18 07:48 | NUR ---
PT SLEEPING IN BED, BIPAP ON, TOLERATED WELL, IN NO APPARENT DISTRESS, NO FACIAL DROOP, RESP EVEN AND NON-LABORED, NO COUGH/SOB, CHEST RISE SYMMETRICALLY, TELE # 14, NSR, HR-84 AT THIS TIME, DIM BLL, O2 SAT 96%, ABD SOFT AND NON-TENDER TO TOUCH, BS ACTIVE X 4, CONTINENT, AMBULATORY, SEE SKIN ASSESSMENT, IV PATENT AND NO INFILTRATION NOTED, PALP PULSES, CAP REFILL < 3 SECS, EDEMA +3 RLE, +1 LLE, SDCs, ALL NEEDS ADDRESSED AT THIS TIME, SAFETY PROTOCOL FOLLWED, WILL CONTINUE TO MONITOR
[2019-02-18 08:17] VITALS: BP 111/66
--- NOTE | 2019-02-18 08:45 | NUR ---
PT IN NO ACUTE RESP DISTRESS, SEEN BY RT AT BEDSIDE W/ HHN TX, AM MED GIVEN PER MD ORDER VIA EMAR, HOLD STOOL SOFTENER D/T PT REPORT DIARRHEA X1 AM 02/18/19, SEMI-LIQUID, MED TAKEN WELL, NO ASE NOTED AT THIS TIME, CONTINUE TO MONITOR
--- NOTE | 2019-02-18 10:56 | NUR ---
PT SITTING IN BED, IN NO ACUTE RESP DISTRESS, AMBULATED TO BATHROOM FOR URINATION AND BM, REPORTED BM X 1, SMALL, SOFT, BACK TO BED, CONTINUE TO MONITOR
[2019-02-18 12:15] VITALS: BP 128/77
--- NOTE | 2019-02-18 15:03 | NUR ---
PT RESTING IN BED, WATCHING TV, IN NO ACUTE RESP DISTRESS, CONTINUE TO MONITOR
--- NOTE | 2019-02-18 16:17 | NUR ---
PT RESTING IN BED, TALKED ON PHONE WITH FAMILY, IN NO ACUTE RESP DISTRESS, MADE AWARE OF 1200ML/DAY FLUID RESTRICTION, VERBALLY UNDERSTANDING, SAFETY PROTOCOL FOLLOWED
[2019-02-18 17:20] VITALS: BP 133/78
--- NOTE | 2019-02-18 17:44 | NUR ---
PT WALKED ALONG HALLWAY, STEADY GAIT, IN NO ACUTE RESP DISTRESS, VERBAL, ABLE TO MAKE NEEDS KNOWN, NO FACIAL DROOP/SLURRED SPEECH, RESP EVEN, NO COUGH/SOB, CHEST RISE SYMMETRICALLY, TELE 14, NSR, DENIED PAIN/PRESSURE/NAPIER, DENIED N/V/D, CONTINENT, AMBULATORY, ALL NEEDS ADDRESSED AT THIS TIME SAFETY PROTOCLL FOLLOWED, WILL ENROSE TO ONCOMING RN
--- NOTE | 2019-02-18 19:20 | NUR ---
REC'D PT FROM DAY NURSE. PT SITTING AT THE SIDE OF THE BED. AAOX4, SPEECH CLEAR, FOLLOWS COMMANDS. DENIES RESP DISTRESS OR SOB. BREATHING EVEN/UNLABORED ON 3L O2 VIA NC, SPO2 97%. ENCOURAGED IS USE 10X HOURLY. TELE 14. DENIES CP, DIZZINESS, OR PALPITATIONS. PITTING EDEMA BLE, R>L. ABD SOFT/ROUND/OBESE. DENIES ABD PAIN, TENDERNESS, OR N/V. VOIDING FREELY. INFORMED PT OF FLUID RESTRICTION <1200 ML/HR. VERBALIZED UNDERSTANDING. AMBULATORY. DRY SCABS TO RUE. ECCHYMOSIS LUE. DENIES PAIN AT THIS TIME. IV TO RAC FLUSHED AND PATENT, SITE WNL. CALL LIGHT WITHIN REACH, BED AT LOWEST POSITION. WILL CONTINUE TO MONITOR.
[2019-02-18 21:24] VITALS: BP 147/86
--- NOTE | 2019-02-18 23:25 | NUR ---
BIPAP IN PLACE. SETTINGS: I/E 06/09, RATE 18, FIO2 28%. PT C/O SOME NUMBING TO BLE. SCDS REAPPLIED. PT READY TO SLEEP. CALL LIGHT WITHIN REACH, BED AT LOWEST POSITION. WILL CONTINUE TO MONITOR.
--- NOTE | 2019-02-19 01:09 | NUR ---
PT RESTING IN BED WITH EYES CLOSED. NO SIGNS OF DISTRESS NOTED. BREATHING EVEN/UNLABORED. BIPAP IN PLACE. CALL LIGHT WITHIN REACH, BED AT LOWEST POSITION. WILL CONTINUE TO MONITOR.
[2019-02-19 05:22] VITALS: BP 152/93
--- NOTE | 2019-02-19 06:02 | NUR ---
PT RESTING IN BED WITH EYES CLOSED. SLEEPING WITH BIPAP ON. NO SIGNS OF DISTRESS NOTED. RESPIRATIONS EVEN/UNLABORED. NO SIGNIFICANT CHANGES DURING SHIFT. CALL LIGHT WITHIN REACH, BED AT LOWEST POSITION. WILL ENDORSE TO DAY NURSE.
[2019-02-19 06:52] LABS: CARBON DIOXIDE 27.9 mmol/L (21-32); CHLORIDE SERUM 102 mmol/L (98-107); CREATININE SERUM 1.3 mg/dL (0.7-1.3); GFR1 > 60 mL/min; GLUCOSE SERUM 173 mg/dL (74-106); MAGNESIUM 1.9 mg/dL (1.8-2.4); POTASSIUM SERUM 4.3 mmol/L (3.5-5.1); SODIUM SERUM 138 mmol/L (136-145)
--- NOTE | 2019-02-19 07:00 | NUR ---
RECEIVED REPORT FROM STUART LIMA, PT IN NO ACUTE RESP DISTRESS
[2019-02-19 07:29] LABS: BASOPHIL % 0.1 % (0-2); PLATELET COUNT 313 x10^3mcL (130-400); RED CELL DISTRIBUTION WIDTH 14.6 % (11.5-14.5)
--- NOTE | 2019-02-19 07:42 | NUR ---
PT SLEEPING IN BED, NO APPARENT OF APNEA, BIPAP ON, TOLERATED WELL, IN NO APPARENT DISTRESS, NO FACIAL DROOP, RESP EVEN AND NON-LABORED, NO COUGH/SOB, CHEST RISE SYMMETRICALLY, TELE # 14, NSR, HR-75 AT THIS TIME, DIM BLL, O2 SAT 94%, 4L/MIN VIA NC, ABD SOFT AND NON-TENDER TO TOUCH, BS ACTIVE X 4, CONTINENT, AMBULATORY, SEE SKIN ASSESSMENT, IV PATENT AND NO INFILTRATION NOTED, PALP PULSES, CAP REFILL < 3 SECS, TRACE EDEMA BLE, SDCs, ALL NEEDS ADDRESSED AT THIS TIME, SAFETY PROTOCOL FOLLWED, WILL CONTINUE TO MONITOR
--- NOTE | 2019-02-19 08:55 | NUR ---
PT NOT IN ACUTE RESP DISTRESS, AM MED GIVEN PER MD ORDER VIA EMAR, TAKEN WELL, NO ASE NOTED AT THIS TIME, CONTINUE TO MONITOR
--- NOTE | 2019-02-19 11:07 | NUR ---
PT HAD SHOWER, NO SOB/COUGH, IN NO ACUTE RESP DISTRESS
--- NOTE | 2019-02-19 11:55 | NUR ---
PT REPORTED ANXIETY AND FOOT RESTLESSNESS, ATIVAN 1GM X 1 TAB GIVEN PER PT REQUEST AND MD PRN ORDER EMAR, TAKEN WELL, NO ASE NOTED AT THIS TIME, CONTINUE TO MONITOR
[2019-02-19 12:42] VITALS: BP 148/97
--- NOTE | 2019-02-19 13:27 | NUR ---
PT ASKED TO HAVE SNACKS AND DIET SODA, PT EDUCATED ABOUT [facility] DIET AND FLUID RESTRICTION 1200ML/DAY, VERBALLY UDNERSTANDING, CONTINUE TO MONITOR
--- NOTE | 2019-02-19 15:15 | NUR ---
DR MARY RICHTER PAGED AND MADE AWARE OF PT REQUEST FOR ANXIETY AND RESTLESS FEET MEDICATION, DR RICHTER ALSO MADE AWARE OF PULLING HS PRN ATIVAN FOR PT D/T ANXIETY AND RESTLESS FEET AT NOON, SAID OK TO GIVE D/T PT CONDITION AND REQUEST, DR RICHTER SAID WILL COME TO SEE PT, PT MADE AWARE.
--- NOTE | 2019-02-19 15:52 | NUR ---
PT REPORTED ANXIOUS AND RESTLESS FEET, ATIVAN 1MG IVP X 1 ONCE GIVEN PER MD ORDER VIA EMAR, TAKEN WELL, NO ASE NOTED AT THIS TIME, V/S STABLE, CONTINUE TO MONITOR
[2019-02-19 17:10] VITALS: BP 141/105
--- NOTE | 2019-02-19 17:50 | NUR ---
PT IN BED, IN NO ACUTE RESP DISTRESS, VERBAL, ABLE TO MAKE NEES KNOWN, TELE, DENIED PAIN/CP/PRESSURE, DENIED N/V/D, IV PATENT AND NO INFILTRATION NOTED, AMBULATORY, CONTINENT, FAMILY AT BEDSIDE, ALL NEEDS ADDRESSED AT THIS TIME, SAFETY PROTOCOL FOLLOWED, WILL ENDORSE TO ONCOMING RN
--- NOTE | 2019-02-19 19:59 | NUR ---
PT. AWAKE, ALERT, ORIENTED X4. DENIES HEADACHE OR DIZZINESS AT THIS TIME. PT. AMBULATED TO BATHROOM AND BACK TO BED, GAIT STEADY. PT. WALKING WITHOUT USE OF NC. NO SOB, NO RESP. DISTRESS NOTED. BREATH SOUNDS DIMINISHED BLL. RESP. EVEN. ABD. SOFT AND ROUND, OBESE. BOWEL SOUNDS ACTIVE. DENIES ABD. PAIN, DENIES NAUSEA. PEDAL PULSES MODERATE, +1 EDEMA TO BLE. IV SITE HEPLOCKED, INTACT. FAMILY AT BEDSIDE. CALL LIGHT WITHIN REACH.
[2019-02-19 20:52] VITALS: BP 151/92
--- NOTE | 2019-02-19 21:30 | NUR ---
PT. APPEARS DEPRESSED AND WHEN ASKED, DID SAY YES THAT HE WAS. PT. HEARD VERBALIZING BY HIS AUNT, AT BEDSIDE, THAT HE WANTED TO USE HIS HEAD PHONE CORD FOR HIS NECK, AND LAUGHED ABOUT IT. HIS AUNT VERBALIZED THIS TO [facility] WHOM INFORMED ME. DR. [facility], CHARGE NURSE WAS MADE AWARE. AT BEDSIDE, PT. DID RESTATED THAT HE IS STRUGGLING WITH HIS DEPRESSION, STATED THAT HIS MEDICINE THAT HE TOOK BEFORE DID NOT WORK. ALSO VERBALIZED GETTING "TIRED' OF REPEATED ADMISSION, AND C/O HIS BREATHING AND BREATHING MACHINE AT HOME NOT WORKING RIGHT. PT. ASKED IF HE HAD A PLAN TO HARM HIMSELF, HE DENIED THIS. RECEIVED ORDERS FOR ATIVAN 1 MG IVP, WHICH WAS GIVEN. PT. MOVED CLOSER TO NURSES' STATION FOR CLOSER OBSERVATION.
[2019-02-19 22:36] VITALS: Ht 172.7 cm; Wt 139.3 kg
--- NOTE | 2019-02-19 22:43 | NUR ---
PT.'S AUNT AT BEDSIDE FOR NOW. PHONE NUMBER,CONTACT INFORMATION OBTAINED.
--- NOTE | 2019-02-20 00:57 | NUR ---
PT. SLEEPING AT THIS TIME, ON HIS BIPAP MACHINE, TOLERATING WELL. CPT. REMAINS IN FULL VIEW OF THE NURSES STATION, WILL CONTINUE TO MONITOR.
[2019-02-20 06:08] VITALS: BP 151/81
[2019-02-20 08:20] VITALS: BP 139/96
--- NOTE | 2019-02-20 08:53 | NUR ---
BREATING TX AT BEDSIDE BY RT. NO ANY DISTRESS NOTED.
[2019-02-20 13:47] VITALS: BP 126/77
--- NOTE | 2019-02-20 14:34 | NUR ---
Initial Nutrition Assessment: 246T/B JACQUE MURPHY IA HR Dx: SOB x 1 week, Heart failure PMHx: DM, HTN, CHF, asthma, sleep apnea, depression PSHx: None Labs: BG 173H, BUN 33H, ALB 2.5 Meds: Ativan, Colace, D 50%, humulin, Lasix, norco, zofran Diet: CCHO, renal, cardiac, 1200 cc fluid restriction PO Intake: (02/20) 100%, (02/19) 100% all meals Ht: 172.72 cm (68") Wt: 143 kg (314#) BMI: 47.9 kg/m2 (morbid obesity) Bed scale: 143.1 kg IBW: 154# (70 kg) %IBW: 203 UBW: 287# Age: 54/M Food Allergies: Iodine Skin: generalized skin intact, BLE dark, discolored Zak: 20 Edema: +1 non-pitting to BLE GI: Last BM: 02/19 Per H&P, Pt is a 54 year old male with PMH of DM, HTN, CHF, asthma, sleep apnea, depression, came in to the hospital with chief complaint of shortness of breath since 3 days. RDN Visit (02/20): Patient was alert and oriented and was very receptive of the diabetic diet education. Patient also showed willingness to attend DM education class. FNS received consult for 'DM diet education' on 02/19. Per progress note (02/20) Pt is breathing better, positive I/O 450, Continue Lasix. Problem with: N/V/D/C: no Problems with: Chewing/Swallowing: none Current appetite: good Recent wt change: gained 27# x 2 weeks (likely d/t edema) %wt change: n/a Vitamin/Supplement use: vitamin C, fish oil Special diet at home: less, sugar, less oil regular food Physical activity: sedentary Nutrition education given: Diabetes diet education was provided using [place] handout on 'Type 2 Diabetes Nutrition Therapy'. Concepts like high fiber diet, label reading, types of carbohydrates and portion control were discussed. Patient verbalized understanding and did not have any questions at this time. Food-drug interactions: Lasix- increase K, Mg intake Education given: yes Estimated Nutritional Needs Based on ideal body weight 70 kg Energy: 6911-7751 kcal/d (25-30 kcal/kg) Protein: 84-105 g/d (1.2-1.5g/kg)- preserve LBM Fluid: 6667-4370 ml/d (1 ml/kcal) or per doctor Nutrition Diagnosis 1. Morbid obesity related to increased energy intake as evidenced by BMI 47.9 kg/m2. Intervention 1. Recommend continuing CCHO, renal, cardiac diet with 1200 cc fluid restriction. 2. Diabetes diet education has been provided. Monitor/Evaluate Goal: PO intake at least 75% of estimated needs Monitor: PO intake, Labs, GI function F/U in 7 days as low risk 02/27
--- NOTE | 2019-02-20 14:34 | NUR ---
1. Recommend continuing CCHO, renal, cardiac diet with 1200 cc fluid restriction. 2. Diabetes diet education has been provided.
[2019-02-20 16:53] VITALS: BP 145/98
--- NOTE | 2019-02-20 17:11 | NUR ---
SPO2:93% HR:95 ON RA AMBULATING SPO2:88% HR:104 ON RA HAD TO STOP DUE PT BEING LIGHTHEADED AND DIZZY. PLACED ON 2L NC. SPO2:94% HR:107 ON 2L NC RESTING SPO2:97% HR:94 ON 2L NC.
--- NOTE | 2019-02-20 18:49 | NUR ---
NO ANY DISTRESS THROUGHOUT SHIFT. DENIES PAIN. ALL SCHEDULED MEDS GIVEN. RT PROTOCAL. BRP. O2 3 LITERS VIA N/C MAINTAINED.
--- NOTE | 2019-02-20 19:15 | NUR ---
BEDSIDE REPORT RECEIVED AND CARE ASSUMED FROM OUTGOING RN. PT SITTING UP AT SIDE OF BED. NO ACUTE DISTRESS NOTED. EVEN AND UNLABORED RESPIRATIONS ON 2LNC, NO C/O SOB. ON TELE# 14 READING SR 96. IVL INTACT. FLUID RESTRICTION OF 1.2L IN PLACE, PT AWARE. DENIES ANY PAIN AT THIS TIME. BED IN LOWEST POSITION. SIDE RAILS UPX2. CALL LIGHT WITHIN REACH. WILL CONTINUE TO MONITOR.
[2019-02-20 20:43] VITALS: BP 121/96
--- NOTE | 2019-02-20 22:00 | NUR ---
PT AMBULATED AROUND THE HALLS WITH WALKER. PT TOLERATED FAIR. WILL CONTINUE TO MONITOR.
--- NOTE | 2019-02-21 02:16 | NUR ---
PT ASLEEP COMFORTABLY IN BED. NO ACUTE DISTRESS NOTED. EVEN AND UNLABORED RESPIRATIONS ON BIPAP. ON TELE# 14 READING SR 77. IVL PATENT AND INTACT. BED IN LOWEST POSITION. SIDE RAILS UPX2. CALL LIGHT WITHIN REACH. WILL CONTINUE TO MONITOR.
[2019-02-21 05:02] VITALS: BP 118/69
--- NOTE | 2019-02-21 06:26 | NUR ---
PT SLEPT COMFORTABLY IN INTERVALS THROUGHOUT THE SHIFT. NO ACUTE CHANGES NOTED. EVEN AND UNLABORED RESPIRATIONS ON 2LNC AND BIPAP. ON TELE# 14 READING SR 82. IVL PATENT AND INTACT. ALL NEEDS TENDED TO AND MET. ALL SCHEDULED MEDICATIONS GIVEN. C/O ANXIETY AND RESTLESSNESS TO TO BLE MEDICATED PER EMAR. BLOOD SUGARS, 187 AND 205, COVERED PER SLIDING SCALE. BED IN LOWEST POSITION. SIDE RAILS UPX2. CALL LIGHT WITHIN REACH. WILL ENDORSE TO ONCOMING SHIFT.
[2019-02-21 06:28] LABS: BASOPHIL % 0.3 % (0-2); PLATELET COUNT 289 x10^3mcL (130-400); RED CELL DISTRIBUTION WIDTH 14.6 % (11.5-14.5)
[2019-02-21 07:00] LABS: CARBON DIOXIDE 28.3 mmol/L (21-32); CHLORIDE SERUM 98 mmol/L (98-107); CREATININE SERUM 1.2 mg/dL (0.7-1.3); GFR1 > 60 mL/min; GLUCOSE SERUM 215 mg/dL (74-106); MAGNESIUM 1.9 mg/dL (1.8-2.4); PHOSPHOROUS 4.7 mg/dL (2.5-4.9); POTASSIUM SERUM 3.8 mmol/L (3.5-5.1); SODIUM SERUM 136 mmol/L (136-145)
--- NOTE | 2019-02-21 07:30 | NUR ---
RECEIVED PATIENT IN BED, APPEARS TO BE RESTING WELL. BI-PAP AT [facility]. AROUSED EASILY TO NAME. DENIES ANY PAIN OR DISCOMFORT. BILAT LUNGS DIMINISHED, OCCAS SOB ON EXERTION NOTED, AND OCCAS NON PRODUCTIVE COUGH NOTED. HL PATENT FLUSHED WELL ON LEFT F/A NO REDNESS OR SWELLING NOTED. 1+ EDEMA NOTED BLE.VOIDING WELL AMBULATES WITH WALKER. TELE 14 SR.
[2019-02-21 08:49] VITALS: BP 127/89
--- NOTE | 2019-02-21 10:12 | NUR ---
PATIENT'S PLAN OF CARE WAS DISCUSSED AND REVIEWED WITH PARTY DEMONSTRATOR: HAL INIGUEZ. I HAVE REVIEWED THE DATA COLLECTION BY PARTY DEMONSTRATOR (NAME):HAL INIGUEZ ENTERED ON (DATE/TIME):02/21/19 AT 0815 I CONCUR WITH THE DATA AND ANY EXCEPTIONS OR COMMENTS ARE LISTED BELOW:
[2019-02-21] MEDS ORDERED: LISINOPRIL2.5 MG PO (10:54)
[2019-02-21] MEDS ORDERED: CARVEDILOL3.125 M1 PO (10:55)
--- NOTE | 2019-02-21 14:10 | NUR ---
PATIENT HAS BEEN UP OOB AMBULATING IN THE HALLWAYS. SITTING UP ON THE SIDE OF THE BED AT THIS TIME WITH O2 VIA N/C ON. SW AT BEDSIDE TO SPEAK WITH PATIENT ABOUT GETTING HOME O2 ARRANGED.
[2019-02-21 14:16] VITALS: BP 135/74
[2019-02-21 18:20] VITALS: BP 133/84
--- NOTE | 2019-02-21 18:30 | NUR ---
PATIENT SITTIING UP ON THE SIDE OF THE BED. RANDOM FSBS DONE PRIOR TO GIVING 50/50 INSULIN. RANDOM FSBS IS 150. DENIES ANY PAIN OR DISCOMFORT.
--- NOTE | 2019-02-21 19:25 | NUR ---
RECEIVED PT FROM PREVIOUS SHIFT. PT A/OX4. DENIES PAIN. DENIES SOB ON 2LNC. IV PATENT AND SALINE LOCKED. CALL LIGHT WITHIN REACH, BED IN LOW POSITION. WILL CONTINUE TO MONITOR.
[2019-02-21 19:51] VITALS: BP 111/84
--- NOTE | 2019-02-22 00:48 | NUR ---
PT RESITNG IN NO ACUTE DISTRESS. RR EVEN AND UNLABORED. CALL LIGHT WITHIN REACH, BED IN LOW POSITION. CALL LIGHT WITHIN REACH, BED IN LOW POSITION. WILL CONTINUE TO MONITOR.
[2019-02-22 06:33] VITALS: BP 129/71
--- NOTE | 2019-02-22 07:18 | NUR ---
RECEIVED BEDSIDE REPORT FROM [facility] NURSE, PATIENT LYING ON LEFT SIDE, EYES CLOSED, BIPAP IN PLACE, NO SIGN OF ACUTE RESP DISTRESS, BREATHING EVEN. WHITE BOARD UPDATED, CALL LIGHT WITHIN REACH. WILL CONT TO MONITOR/ASSESS.
--- NOTE | 2019-02-22 07:45 | NUR ---
BREAKFAST TRAY SET UP ON BEDSIDE TABLE. PATIENT EASILY ARROUSABLE, BIPAP MACHINE REMOVED AND REPLACED W/ 2L NC PER ORDER. SITTING UP ON EDGE OF BED. PATIENT A/OX4, ABLE TO MAKE NEEDS KNOWN AND FOLLOW COMMANDS. DENIES HEADACHE OR DIZZINESS, SPEECH CLEAR, EQUAL PROCESS CONTROL SUPERVISOR STRENGTH. TELE [address] READ[address] SR, DENIES CP OR PALPITATION. LUNG SOUNDS DIMINISHED BILAT, DENIES HAVING DIFFICULTY BREATHING. PERIPHERAL PULSES PALPABLE, MILD PITTING EDEMA TO BLE'S. BOWEL SOUNDS ACTIVE, DENIES N/V. SCABS NOTED TO RUE, NO ACTIVE BLEEDING, JUSTA. ECCHYMOSIS TO LUE JUSTA. DENIES PAIN AT THIS TIME. IV ACCESS TO LFA SITE WNL. INCENTIVE SPIROMETER AND CALL LIGHT WITHIN REACH, DEMONSTRATES UNDERSTANDING ON HOW TO USE.
[2019-02-22 08:19] VITALS: BP 105/63
--- NOTE | 2019-02-22 08:57 | NUR ---
RESPIRATORY THERAPIST AT BEDSIDE GIVING BREATHING TREATMENT. NO SIGN OF ACUTE DISTRESS.
--- NOTE | 2019-02-22 11:24 | NUR ---
OXYGEN TANK DELIVERED TO ROOM, RT EDUCATED PATIENT ON HOW TO USE. PATIENT VERBALIZED UNDERSTANDING.
[2019-02-22 11:57] VITALS: BP 134/86
--- NOTE | 2019-02-22 14:18 | NUR ---
RESPIRATORY THERAPIST AT BEDSIDE GIVING BREATHING TREATMENT, NO SIGN OF ACUTE DISTRESS.
[2019-02-22 15:00] VITALS: BP 134/86
--- NOTE | 2019-02-22 17:02 | NUR ---
PER PATIENT, CONCENTRATOR DELIVERED AT HOME AND SISTER IS ON HER WAY TO PICK HIM UP. DISCHARGE INSTRUCTIONS AND PRESCRIPTION GIVEN, PATIENT VERBALIZEDN UNDERSTANDING. IV DC'D CATH INTACT. TELE RETURNED TO TECH STATION. ALL QUESTIONS/CONCERNS ADDRESSED.
== END 2019-02-22 17:48 | disposition home or self-care (01) | DRG 194 ==
LOC: ED 21:20 → DU 02-18 00:47
PROVIDERS: Emergency Medicine; ADMIT Internal Medicine
DX: I13.0 Hypertensive heart and chronic kidney disease with heart failure and stage 1 through stage 4 chronic kidney disease, or unspecified chronic kidney disease (principal); J96.21 Acute and chronic respiratory failure with hypoxia; N17.0 Acute kidney failure with tubular necrosis; E43 Unspecified severe protein-calorie malnutrition; I50.23 Acute on chronic systolic (congestive) heart failure; I42.9 Cardiomyopathy, unspecified; E11.22 Type 2 diabetes mellitus with diabetic chronic kidney disease; J44.1 Chronic obstructive pulmonary disease with (acute) exacerbation; E11.65 Type 2 diabetes mellitus with hyperglycemia; N18.9 Chronic kidney disease, unspecified; F15.10 Other stimulant abuse, uncomplicated; G47.33 Obstructive sleep apnea (adult) (pediatric); E78.5 Hyperlipidemia, unspecified; E87.1 Hypo-osmolality and hyponatremia; E87.5 Hyperkalemia; Z79.84 Long term (current) use of oral hypoglycemic drugs
CPT/HCPCS: 36600; 82962; 83880; G0378; J1815; J1817; J1940; J2060; J3490; J7620; Q0092